=== PATIENT | male | born 1985 | race Caucasian/White ===

== ENCOUNTER → 2020-05-03 16:33 | Outpatient (CLI) | payer OTHER, SELFPAY ==
[2020-05-03 19:15] LABS: Cholesterol 164 mg/dL (200); High Density Lipoprotein 41 mg/dL; Triglycerides 289 mg/dL; Very Low Density Lipoprotein 58 mg/dL (5-40)
== END ==
PROVIDERS: PCP Family Medicine; Referring Provider Family Medicine; Visit Provider Nurse Practitioner Family
DX: Z13.220 Encounter for screening for lipoid disorders (principal)
CPT/HCPCS: 36415; 80061